=== PATIENT | male | born 1945 | race Caucasian/White ===

== ENCOUNTER 2025-04-16 06:32 | Day surgery (SDC) | payer OTHER, SELFPAY ==
--- NOTE | 2025-04-15 19:46 | W.PREOPHP ---
Assessment and Plan Assessment and plan (1) Cortical age-related cataract, left eye: Status: Acute Assessment and plan: Assessment: Visually significant cataract left eye. Plan: Cataract extraction with intraocular lens implantation left eye follwed by right eye (2) Nuclear age-related cataract, left eye: Status: Acute Assessment and plan: Assessment: Visually significant cataract left eye. Plan: Cataract extraction with intraocular lens implantation left eye follwed by right eye (3) Nuclear age-related cataract, right eye: Status: Acute Assessment and plan: Assessment: Visually significant cataract right eye. Plan: Cataract extraction with intraocular lens implantation left eye follwed by right eye (4) Cortical age-related cataract, right eye: Status: Acute Assessment and plan: Assessment: Visually significant cataract right eye. Plan: Cataract extraction with intraocular lens implantation left eye follwed by right eye History of Present Illness History of Present Illness Chief Complaint: Progressive decreased vision both eyes Narrative: The patient is a 79-year-old male with history of progressive diminished visual acuity both eyes at both distance and near. He notes mainly his near vision is difficult and he cannot read small print. 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 cataract, left eye (Acute) Nuclear age-related cataract, left eye (Acute) Cortical age-related cataract, right eye (Acute) Nuclear age-related cataract, right eye (Acute) Medical History Erectile disorder Asthma Afib Acid reflux Diabetes type 2 HLD (hyperlipidemia) HTN (hypertension) Social History Smoking/Tobacco Use Status: Former Tobacco Use Smoking risk assessment performed?: Yes Alcohol Intake: former Drug use: Never Housing: house Additional Social history: [facility] Meds Allergies and Home Medications Allergies Allergy/AdvReac Type Severity Reaction Status Date / Time No Known Allergies Allergy Unverified 04/16/25 06:56 Home Medications Medication Instructions Recorded Confirmed Type aspirin 81 mg tablet,delayed 1 tab PO DAILY 12/22/13 04/15/25 History release (Aspir-Low) Held on 04/15/25. Instructions: Pt Stopped/Never Started atenolol 25 mg tablet 1 tab PO DAILY 12/22/13 04/16/25 History atorvastatin 20 mg tablet (Lipitor) 1 tab PO DAILY 12/22/13 04/16/25 History diphenhydramine HCl 25 mg capsule 1 tab PO DAILY PRN 12/22/13 04/16/25 History (Benadryl) lisinopril 40 mg tablet 1 tab PO DAILY 12/22/13 04/16/25 History ranitidine HCl 150 mg tablet (Acid 1 tab PO DAILY 12/22/13 04/15/25 History Jewel Bearing Polisher (ranitidine)) apixaban 2.5 mg tablet 2.5 mg PO DAILY 04/15/25 04/16/25 History Exam Eyes Other: On examination his uncorrected visual acuity measures 20/40 OD, 20/70 OS. Extraocular motility is normal. Intraocular pressure is 15 OD, 13 OS. Slit-lamp examination shows a mild cortical with moderate brunescent nuclear cataract in the right eye. In the left eye there is a moderate cortical cataract with moderate brunescent nuclear cataract. Funduscopic examination shows disc cupping of 0.6 OD, 0.5 OS with normal vessels, macula, peripheral retina and vitreous. Resp Auscultation: clear to auscultation bilaterally Cardio Rate: regular rate Rhythm: regular rhythm
[2025-04-16 06:45] VITALS: BP 124/92; PULSE 89; RESP 18; TEMP 36; O2SAT 96
[2025-04-16] MEDS: Tropicam./Phenyleph. (1/2.5%) 5 ML BTL OS ×3 (06:54→07:08)
[2025-04-16 07:12] VITALS: BP 124/92; PULSE 89; RESP 18; TEMP 36; O2SAT 96
--- NOTE | 2025-04-16 07:39 | W.ANESPRE ---
General Info Date of Service Date Performed: 04/16/25 Height: 5 ft 7 in Weight: 75.7 kg Body Mass Index (BMI): 26.1 Surgical Procedure: Operation Date: 04/16/25 08:40 Proposed Procedure Side Surgeon p Cataract Extraction with IOL Implant Left Nitesh Bocanegra MD Meds Allergies and Home Medications Allergies Allergy/AdvReac Type Severity Reaction Status Date / Time No Known Allergies Allergy Unverified 04/16/25 06:56 Home Medication Medication Instructions Recorded aspirin 81 mg tablet,delayed 1 tab PO DAILY 12/22/13 release (Aspir-Low) Held on 04/15/25. Instructions: Pt Stopped/Never Started atenolol 25 mg tablet 1 tab PO DAILY 12/22/13 atorvastatin 20 mg tablet (Lipitor) 1 tab PO DAILY 12/22/13 diphenhydramine HCl 25 mg capsule 1 tab PO DAILY PRN 12/22/13 (Benadryl) lisinopril 40 mg tablet 1 tab PO DAILY 12/22/13 ranitidine HCl 150 mg tablet (Acid 1 tab PO DAILY 12/22/13 Anode Crew Supervisor (ranitidine)) apixaban 2.5 mg tablet 2.5 mg PO DAILY 04/15/25 Current Visit Medications: Current Medications Generic Name Dose Route Start Last Admin Trade Name Freq PRN Reason Stop Dose Admin Acetaminophen 1,000 mg 04/16/25 06:00 Acetaminophen 500 Mg Tab PO 05/16/25 05:59 Q4H PRN PRN Balanced Salt Solution 500 ml 04/16/25 06:00 Balanced Salt Soln.-Plus 500 Ml Bag OP 05/16/25 05:59 DIRECTED [facility] Miscellaneous Medication 0 ml 04/16/25 06:00 Prednisolone 1%, Moxifloxacin 0.5%, Bromfenac 0.09% 5.6ml Btl OS 05/16/25 05:59 DIRECTED [facility] Miscellaneous Medication 0 ml 04/16/25 06:00 04/16/25 07:08 Tropicam./Phenyleph. 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-related cataract, left eye Acute H25.012 Nuclear age-related cataract, left eye Acute H25.12 Cortical age-related cataract, right eye Acute H25.011 Nuclear age-related cataract, right eye Acute H25.11 Medical History Medical History Erectile disorder Asthma Afib Acid reflux Diabetes type 2 HLD (hyperlipidemia) HTN (hypertension) Tobacco Smoking/Tobacco Use Status: Former Tobacco Use Alcohol Alcohol Intake: former Substance Use Substance use: Never Vital Signs and Lab Results Vital Signs Most Recent Vital Signs in EMR: Most Recent Vital Signs Temp Pulse Resp BP Pulse Ox 36 C L 89 18 124/92 H 96 04/16/25 07:12 04/16/25 07:12 04/16/25 07:12 04/16/25 07:12 04/16/25 07:12 Point of Care Results Point of Care Results: Finger Stick Blood Glucose 170 04/16/25 06:53 Anesthesia Assessment and Plan Anesthesia History Personal History: No History of Anesthesia Complications Family History: No Family History of Anesthesia Complications Exercise Tolerance Exercise Tolerance: Metabolic Equivalents>4 Pertinent Negatives Pertinent Negatives: No Symptoms of GERD Cardiac & Pulmonary Exam Cardiac Exam: Normal S1/S2 Heart Sounds Pulmonary Exam: Clear Bilateral Breath Sounds Implantable Cardiac Device Does patient have a Pacemaker or an ICD?: No Airway Exam Known Difficult Airway: No Mallampati Class: 1 Mouth Opening: Normal (> 3cm) Thyromental Distance: Greater than 3 cm Neck Range of Motion: Full ROM Neck Circumference: Normal Teeth Condition: Removable Dentures/Plates Upper ASA Classification ASA Score: ASA 3 Emergency Case?: No NPO Status NPO Status: NPO Clears >2 hours, Solids >8 hours Anesthesia Plan Resuscitation Status: Full Code Anesthesia Technique: MAC Anesthesia Airway Planned: Natural Airway Monitors Used: Standard Monitors
[2025-04-16 07:40] VITALS: BMI 26.1
[2025-04-16] MEDS: Duovisc Viscoelastic System EACH 1 EACH (08:32)
[2025-04-16] MEDS: Moxifloxacin-PF 1 MG/ML VIAL (08:33)
[2025-04-16] MEDS: Lidocaine 1% Pres-Free 5 ML VIAL (08:33)
[2025-04-16] MEDS: Povidone-Iodine Ophth 30 ML BTL (08:34)
[2025-04-16] MEDS: Phenylephrine/Lidocaine (15/10) MG/ML 1 ML VIAL (08:34)
[2025-04-16] MEDS: Prednisolone 1%, Moxifloxacin 0.5%, Bromfenac 0.09% 5.6ML BTL OS (08:35)
[2025-04-16] MEDS: Trypan Blue 0.06% 0.5 ML SYR (08:35)
[2025-04-16] MEDS: Balanced Salt Soln.-PLUS 500 ML BAG OP (08:35)
[2025-04-16] MEDS: Tetracaine 0.5% 4 ML BTL OS (08:36)
[2025-04-16 08:55] VITALS: BP 129/89; PULSE 74; RESP 14; TEMP 36.5; O2SAT 98
--- NOTE | 2025-04-16 08:56 | W.PM.DSUDISC ---
Date of service: 04/16/25 Discharge Plan Disposition Patient Disposition: Home Discharge Details Attending Provider: Nitesh Bocanegra Home Meds and New Rx's Prescriptions: No Action atorvastatin [Lipitor] 20 MG tablet 1 tab PO DAILY atenolol 25 MG tablet 1 tab PO DAILY aspirin [Aspir-Low] 81 MG tablet,delayed release (DR/EC) 1 tab PO DAILY diphenhydramine HCl [Benadryl] 25 MG capsule 1 tab PO DAILY PRN Acid City Planning Teacher (ranitidine) 150 MG tablet 1 tab PO DAILY lisinopril 40 MG tablet 1 tab PO DAILY apixaban 2.5 mg tablet 2.5 mg PO DAILY Discharge Instructions Stand Alone Forms: [facility] Post-Op Cataract, Latasha Warner ([facility]), Portal Information Discharge Orders Discharge Orders: Discharge Order (Routine); Ordered 04/16/25 Ordered By: Nitesh Bocanegra DS: Diagnosis Discharge Diagnosis (1) Cortical age-related cataract, left eye: Status: Resolved (2) Nuclear age-related cataract, left eye: Status: Resolved
--- NOTE | 2025-04-16 08:57 | ROE_ITS ---
Operative Note Operative Note PRE-OP DIAGNOSIS: Nuclear/cortical cataract, left eye POST-OP DIAGNOSIS: same PROCEDURE: Cataract extraction using phacoemulsification with intraocular lens implant, left eye SURGEON: Nitesh Bocanegra ANESTHESIA TYPE: Local By Surgeon and MAC Refer to Anesthesia Record PATHOLOGY: none sent COMPLICATIONS: None Patient was transported to: same day Patient's condition: stable Implants: Nick Clareon [id number] Indications: Progressive decreased vision due to cataract, left eye Procedure Description: CATARACT SURGERY OPERATIVE REPORT PREOPERATIVE DIAGNOSIS: Nuclear/cortical cataract, left eye POSTOPERATIVE DIAGNOSIS: Same OPERATION: Cataract extraction using phacoemulsification with posterior chamber intraocular lens implant, left eye. IOL: IOL Vending Machine Assembler/Model: Nick Clareon [id number] IOL Power: + 21.0 diopters IOL Serial Number: [id number] Optic Diameter: 6.0mm Haptic/Overall Diameter: 13.0mm PHACO INFO: Nick Centurion Vision System with OZil and Active Fluidics Cumulative Dispersed Energy (CDE): 6.21 seconds SURGEON: Nitesh Bocanegra MD, LASHA ANESTHESIA: Monitored Anesthesia Care (MAC), with local sub-tenon's anesthetic infiltration COMPLICATIONS: None SPECIMENS: None INDICATIONS FOR PROCEDURE: The patient is a 79-year-old male with history of diminished visual acuity in his left eye secondary to the development of nuclear/cortical cataract. He is significantly symptomatic but he desires cataract surgery and attempt to improve and maximize his vision. The option of cataract surgery was offered to the patient and he wished to proceed. See office notes for detailed information. PROCEDURE: The correct surgical eye was identified and marked as the left eye and the pupil was dilated in the preoperative area using mydriatics and cycloplegics. The dilated pupil size was 7.0 mm. The patient elected to proceed without oral sedation. The patient was brought to the operating room where cardiopulmonary monitoring was instituted and surgical time-out was performed, confirming the correct operative eye and IOL power. Topical anesthesia was administered and ophthalmic povidone-iodine 5% was instilled into the conjunctival fornices. The pramod-ocular area was prepped with Betadine 10% solution and draped in the usual sterile fashion for intraocular surgery, including an aperture drape. A Tegaderm transparent film dressing was cut in half and used to cover the lashes and lid margins. Care was taken to sequester the lashes and lid margins under the Tegaderm dressing. A lid speculum was placed between the lids of the operative eye and the Nick LuxOR Revalia operating microscope was maneuvered into position. Hakan scissors were then used to make a conjunctival buttonhole approximately 6mm posterior to the limbus in the inferonasal quadrant. Blunt dissection was carried out to expose bare sclera, and a blunt-tipped sub-tenon’s anesthesia cannula was introduced and passed posteriorly along the globe where non- preserved plain lidocaine was injected into posterior sub-Tenon’s space. A sideport knife was used to make a paracentesis port. VisionBlue was injected into the anterior chamber and allowed to sit for 30 seconds. Intraocular phenylephrine/lidocaine was injected into the anterior chamber. Th e anterior chamber was then filled with viscoelastic. A keratome knife was used construct a two-plane clear corneal tunnel extending 2.0mm into clear cornea. A flap was raised on the anterior capsule and capsulorhexis forceps were used to complete a continuous curvilinear capsulorhexis of 5.0 mm. Balanced salt solution was then used to perform cortical cleaving hydrodissection and nuclear hydrodelineation until the lens could be freely rotated within the capsular bag. The lens nucleus was then disassembled and removed within the capsular bag and iris plane using phacoemulsification. Resid ual cortical material was removed using the irrigation/aspiration handpiece. The posterior capsule was carefully polished to remove as much residual lens epithelial cells as safely possible. The capsular bag was then inflated and the anterior chamber deepened with viscoelastic. The lens implant described above was inserted into the capsular bag using the Nick Autonome Injector. A Kuglen hook was used to dial the IOL into position. Residual viscoelastic was then removed first from posterior to the IOL, then from the anterior chamber using the I/A handpiece. The lens implant was noted to center nicely within the capsular bag. The incisions were stromally hydrated, and the anterior chamber was reformed using BSS. Then 0.5cc of moxifloxacin 1.0mg/ml were injected into the capsular bag and anterior chamber. The incisions were checked with a Weck spear and found to be secure. Several drops of ophthalmic povidone-iodine 5% were then applied to the eye followed by two drops of combination steroid/NSAID/antibiotic solution. The drapes were removed and a clear plastic protective eye shield was placed over the eye. The patient was then returned to Same Day Surgery in stable condition. Date of Procedure: 04/16/25
--- NOTE | 2025-04-16 09:11 | W.ANESPOSTOP ---
Postoperative Evaluation Date, Time and Location Date Performed: 04/16/25 Time Performed: 09:05 Patient Location: Day Surgery Unit Vital Signs Most Recent Imported Vital Signs: Most Recent Vital Signs Temp Pulse Resp BP Pulse Ox 36.5 C 74 14 129/89 98 04/16/25 08:55 04/16/25 08:55 04/16/25 08:55 04/16/25 08:55 04/16/25 08:55 Pain Score Most Recent Pain Score: Most Recent Pain Score Pain Level 0 04/16/25 08:55 Assessment Mental Status: Awake (Alert & Oriented to Patient Baseline) Airway and Respiratory Function: Patent airway with normal (patient baseline) respiratory exam Cardiovascular Function: Hemodynamically Stable Hydration Status: Adequately Hydrated Nausea & Vomiting: No Nausea or Vomiting Pain: Pt. Denies Any Pain Peripheral Nerve Block: Patient did not receive a nerve block
== END 2025-04-16 09:12 | disposition home or self-care (01) ==
LOC: SUR 06:39
PROVIDERS: Visit Provider Ophthalmology
PROC: (CPT 66984; principal; 2025-04-16 08:30)
DX: H25.012 Cortical age-related cataract, left eye (principal); H25.12 Age-related nuclear cataract, left eye
CPT/HCPCS: 66984; 00123; V2632; J2003

== ENCOUNTER 2025-05-07 09:59 | Day surgery (SDC) | payer OTHER, SELFPAY ==
[2025-05-07 10:02] VITALS: BP 134/81; PULSE 64; RESP 18; TEMP 36.2; O2SAT 99
[2025-05-07] MEDS: Tropicam./Phenyleph. (1/2.5%) 5 ML BTL OD ×3 (10:09→10:23)
--- NOTE | 2025-05-07 10:28 | W.ANESPRE ---
General Info Date of Service Date Performed: 05/07/25 Height: 5 ft 7 in Weight: 76.9 kg Body Mass Index (BMI): 26.5 Surgical Procedure: Operation Date: 05/07/25 12:40 Proposed Procedure Side Surgeon p Cataract Extraction with IOL Implant Right Nitesh Bocanegra MD Meds Allergies and Home Medications Allergies Allergy/AdvReac Type Severity Reaction Status Date / Time No Known Allergies Allergy Verified 05/07/25 10:14 Home Medication ?Medication ?Instructions ?Recorded aspirin 81 mg tablet,delayed 1 tab PO DAILY 12/22/13 release (Aspir-Low) Held on 04/15/25. Instructions: Pt Stopped/Never Started atorvastatin 20 mg tablet (Lipitor) 1 tab PO DAILY 12/22/13 diphenhydramine HCl 25 mg capsule 1 tab PO DAILY PRN 12/22/13 (Benadryl) lisinopril 40 mg tablet 1 tab PO DAILY 12/22/13 apixaban 2.5 mg tablet 2.5 mg PO DAILY 04/15/25 amlodipine 5 mg tablet 5 mg PO DAILY 05/05/25 clopidogrel 75 mg tablet (Plavix) 75 mg PO DAILY 05/05/25 magnesium oxide 400 mg PO BID 05/05/25 metformin 500 mg tablet 500 mg PO BID 05/05/25 metoprolol tartrate 50 mg tablet 50 mg PO BID 05/05/25 (Lopressor) multivitamin 1 tab PO DAILY 05/05/25 omeprazole 40 mg capsule,delayed 40 mg PO DAILY 05/05/25 release sildenafil 25 mg tablet 25 mg PO DAILY PRN 05/05/25 tamsulosin 0.4 mg capsule 0.4 mg PO DAILY 05/05/25 Current Visit Medications: Current Medications Generic Name Dose Route Start Last Admin Trade Name Freq PRN Reason Stop Dose Admin Acetaminophen 1,000 mg 05/07/25 06:00 Acetaminophen 500 Mg Tab PO 06/06/25 05:59 Q4H PRN PRN Balanced Salt Solution 500 ml 05/07/25 06:00 Balanced Salt Soln.-Plus 500 Ml Bag OP 06/06/25 05:59 DIRECTED [facility] Miscellaneous Medication 0 ml 05/07/25 06:00 Prednisolone 1%, Moxifloxacin 0.5%, Bromfenac 0.09% 5.6ml Btl OD 06/06/25 05:59 DIRECTED [facility] Miscellaneous Medication 0 ml 05/07/25 06:00 05/07/25 10:23 Tropicam./Phenyleph. (1/2.5%) 5 Ml Btl OD 06/06/25 05:59 1 drp DIRECTED [facility] Administration Tetracaine HCl 0 ml 05/07/25 06:00 Tetracaine 0.5% 4 Ml Btl OD 06/06/25 05:59 DIRECTED [facility] PFSH Active Problems Active Problems: Problem Status Onset Code Nuclear age-related cataract, right eye Acute H25.11 Cortical age-related cataract, right eye Acute H25.011 Cortical age-related cataract, left eye Resolved H25.012 Nuclear age-related cataract, left eye Resolved H25.12 Medical History Medical History Erectile disorder Asthma Afib Acid reflux Diabetes type 2 HLD (hyperlipidemia) HTN (hypertension) Tobacco Smoking/Tobacco Use Status: Former Tobacco Use Alcohol Alcohol Intake: former Substance Use Substance use: Never Vital Signs and Lab Results Vital Signs Most Recent Vital Signs in EMR: Most Recent Vital Signs Temp Pulse Resp BP Pulse Ox 36.2 C L 64 18 134/81 99 05/07/25 10:02 05/07/25 10:02 05/07/25 10:02 05/07/25 10:02 05/07/25 10:02 Point of Care Results Point of Care Results: Finger Stick Blood Glucose 120 05/07/25 10:11 Anesthesia Assessment and Plan Anesthesia History Personal History: No History of Anesthesia Complications Family History: No Family History of Anesthesia Complications Exercise Tolerance Exercise Tolerance: Metabolic Equivalents>4 Pertinent Negatives Pertinent Negatives: No Symptoms of GERD Cardiac & Pulmonary Exam Cardiac Exam: Other Pulmonary Exam: Clear Bilateral Breath Sounds Implantable Cardiac Device Does patient have a Pacemaker or an ICD?: No Airway Exam Known Difficult Airway: No Mallampati Class: 1 Mouth Opening: Normal (> 3cm) Thyromental Distance: Greater than 3 cm Neck Range of Motion: Full ROM Neck Circumference: Normal Teeth Condition: Removable Dentures/Plates Upper ASA Classification ASA Score: ASA 3 Emergency Case?: No NPO Status NPO Status: NPO Clears >2 hours, Solids >8 hours Anesthesia Plan Resuscitation Status: Full Code Anesthesia Technique: MAC Anesthesia Airway Planned: Natural Airway Monitors Used: Standard Monitors
[2025-05-07 10:53] VITALS: BMI 26.5
[2025-05-07] MEDS: Duovisc Viscoelastic System EACH 1 EACH (11:17)
[2025-05-07] MEDS: Phenylephrine/Lidocaine (15/10) MG/ML 1 ML VIAL (11:18)
[2025-05-07] MEDS: Moxifloxacin-PF 1 MG/ML VIAL (11:18)
[2025-05-07] MEDS: Lidocaine 1% Pres-Free 5 ML VIAL (11:18)
[2025-05-07] MEDS: Balanced Salt Soln.-PLUS 500 ML BAG OP (11:19)
[2025-05-07] MEDS: Povidone-Iodine Ophth 30 ML BTL (11:19)
[2025-05-07] MEDS: Prednisolone 1%, Moxifloxacin 0.5%, Bromfenac 0.09% 5.6ML BTL OD (11:20)
[2025-05-07] MEDS: Tetracaine 0.5% 4 ML BTL OD (11:20)
[2025-05-07 11:36] VITALS: BP 136/77; PULSE 53; RESP 14; TEMP 36.8; O2SAT 95
--- NOTE | 2025-05-07 11:37 | W.PM.DSUDISC ---
Date of service: 05/07/25 Discharge Plan Disposition Patient Disposition: Home Discharge Details Attending Provider: Nitesh Bocanegra Primary Care Provider: Unknown,Unknown Home Meds and New Rx's Prescriptions: No Action atorvastatin [Lipitor] 20 MG tablet 1 tab PO DAILY aspirin [Aspir-Low] 81 MG tablet,delayed release (DR/EC) 1 tab PO DAILY diphenhydramine HCl [Benadryl] 25 MG capsule 1 tab PO DAILY PRN lisinopril 40 MG tablet 1 tab PO DAILY apixaban 2.5 mg tablet 2.5 mg PO DAILY amlodipine 5 mg tablet 5 mg PO DAILY omeprazole 40 mg capsule,delayed release(DR/EC) 40 mg PO DAILY clopidogrel [Plavix] 75 mg tablet 75 mg PO DAILY magnesium oxide 400 mg magnesium capsule 400 mg PO BID metformin 500 mg tablet 500 mg PO BID metoprolol tartrate [Lopressor] 50 mg tablet 50 mg PO BID multivitamin Tablet 1 tab PO DAILY sildenafil 25 mg tablet 25 mg PO DAILY PRN Rx Instructions: administer 30 minutes to 4 hours before activity tamsulosin 0.4 mg capsule 0.4 mg PO DAILY Discharge Instructions Stand Alone Forms: [facility] Post-Op Cataract, Latasha Warner ([facility]), Portal Information Discharge Orders Discharge Orders: Discharge Order (Routine); Ordered 05/07/25 Ordered By: Nitesh Bocanegra DS: Diagnosis Discharge Diagnosis (1) Nuclear age-related cataract, right eye: Status: Resolved (2) Cortical age-related cataract, right eye: Status: Resolved
--- NOTE | 2025-05-07 11:40 | W.PM.OP ---
Operative Note Operative Note PRE-OP DIAGNOSIS: Nuclear/cortical cataract, right eye POST-OP DIAGNOSIS: same PROCEDURE: Cataract extraction using phacoemulsification with intraocular lens implant, right eye SURGEON: Nitesh Bocanegra ANESTHESIA TYPE: Local By Surgeon and MAC Refer to Anesthesia Record ESTIMATED BLOOD LOSS: 0 PATHOLOGY: none sent COMPLICATIONS: None Patient was transported to: same day Patient's condition: stable Implants: J[employer] Jaspal Tecnis Eyhance DIB00 Indications: Progressive visual loss due to cataract, right eye Procedure Description: CATARACT SURGERY OPERATIVE REPORT PREOPERATIVE DIAGNOSIS: 1. Nuclear/cortical cataract, right eye POSTOPERATIVE DIAGNOSIS: Same OPERATION: 1. Cataract extraction using phacoemulsification with posterior chamber intraocular lens implant, right eye. 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 He has already undergone cataract surgery in the left eye and is doing well postoperatively. He now presents for cataract surgery in the right eye. See office notes for detailed information. PROCEDURE: The correct surgical eye was identified and marked as the right eye and the pupil was dilated in the preoperative area using mydriatics and cycloplegics. The dilated pupil size was 7.0 mm. The patient elected to proceed without oral sedation. The patient was brought to the operating room where cardiopulmonary monitoring was instituted and surgical time-out was performed, confirming the correct operative eye and IOL power. Topical anesthesia was administered and ophthalmic povidone-iodine 5% was instilled into the conjunctival fornices. The pramod-ocular area was prepped with Betadine 10% solution and draped in the usual sterile fashion for intraocular surgery, including an aperture drape. A Tegaderm transparent film dressing was cut in half and used to cover the lashes and lid margins. Care was taken to sequester the lashes and lid margins under the Tegaderm dressing. A lid speculum was placed between the lids of the operative eye and the Nick Lux[employer] Revalia operating microscope was maneuvered into position. Hakan scissors were then used to make a conjunctival buttonhole approximately 6mm posterior to the limbus in the inferonasal quadrant. Blunt dissection was carried out to expose bare sclera, and a blunt-tipped sub-tenon?s anesthesia cannula was introduced and passed posteriorly along the globe where non-preserved plain lidocaine was injected into posterior sub-Tenon?s space. A sideport knife was used to make a paracentesis port. Intraocular phenylephrine/lidocaine was injected into the anterior chamber. The anterior chamber was filled with viscoelastic. A keratome knife was used to construct a 2-plane clear corneal tunnel extending 2.0mm into clear cornea. A flap was raised on the anterior capsule and capsulorhexis forceps were used to complete a continuous curvilinear capsulorhexis of 5.0 mm. Balanced salt solution was then used to perform cortical cleaving hydrodissection and nuclear hydrodelineation until the lens could be freely rotated within the capsular bag. The lens nucleus was then disassembled and removed within the capsular bag and iris plane using phacoemulsification. Residual cortical material was removed using the I/A handpiece. The posterior capsule was carefully polished to remove as much residual lens epithelial cells as safely possible. The capsular bag was then inflated and the anterior chamber deepened with cohesive viscoelastic. The lens implant described above was inserted into the capsular bag using the Jaspal and Avis Simplicity pre-loaded injector. A Kuglen hook was used to dial the IOL into position. Residual viscoelastic was then removed first from posterior to the IOL, then from the anterior chamber using the I/A handpiece. The lens implant was noted to center nicely within the capsular bag. The incisions were stromally hydrated, and the anterior chamber was reformed using BSS. Then 0.5cc of moxifloxacin 1.0mg/ml were injected into the capsular bag and anterior chamber. The incisions were checked with a Weck spear and found to be secure. Several drops of ophthalmic povidone-iodine 5% were then applied to the eye followed by two drops ocombination steroid/NSAID/antibiotic solution. The drapes were removed and a clear plastic protective eye shield was placed over the eye. The patient was then returned to Same Day Surgery in stable condition. Date of Procedure: 05/07/25
--- NOTE | 2025-05-07 11:51 | W.ANESPOSTOP ---
Postoperative Evaluation Date, Time and Location Date Performed: 05/07/25 Time Performed: 11:51 Patient Location: Day Surgery Unit Vital Signs Most Recent Imported Vital Signs: Most Recent Vital Signs Temp Pulse Resp BP Pulse Ox 36.8 C 53 L 14 136/77 95 05/07/25 11:36 05/07/25 11:36 05/07/25 11:36 05/07/25 11:36 05/07/25 11:36 Pain Score Most Recent Pain Score: Most Recent Pain Score Pain Level 0 05/07/25 11:36 Assessment Mental Status: Awake (Alert & Oriented to Patient Baseline) Airway and Respiratory Function: Patent airway with normal (patient baseline) respiratory exam Cardiovascular Function: Hemodynamically Stable Hydration Status: Adequately Hydrated Nausea & Vomiting: No Nausea or Vomiting Pain: Pt. Denies Any Pain Peripheral Nerve Block: Patient did not receive a nerve block
== END 2025-05-07 11:55 | disposition home or self-care (01) ==
LOC: SUR 09:59
PROVIDERS: Visit Provider Ophthalmology
PROC: (CPT 66984; principal; 2025-05-07 12:30)
DX: H25.11 Age-related nuclear cataract, right eye (principal); H25.011 Cortical age-related cataract, right eye; Z98.42 Cataract extraction status, left eye
CPT/HCPCS: 66984; 00123; V2632; J2003